=== PATIENT | female | born 1990 | race Asian ===

== ENCOUNTER → 2016-11-11 | Emergency (ER) | payer OTHER ==
[2016-11-11 15:59] VITALS: BP 123/95; PULSE 57; TEMP 98.3; BMI 31.1
--- NOTE | 2016-11-13 11:43 | EKG ---
Test Reason : Blood Pressure : / mmHG Vent. Rate : 063 BPM Atrial Rate : 063 BPM P-R Int : 204 ms QRS Dur : 162 ms QT Int : 428 ms P-R-T Axes : 043 -47 -25 degrees QTc Int : 437 ms NORMAL SINUS RHYTHM RIGHT BUNDLE BRANCH BLOCK LEFT ANTERIOR FASCICULAR BLOCK BIFASCICULAR BLOCK MINIMAL VOLTAGE CRITERIA FOR LVH, MAY BE NORMAL VARIANT T WAVE ABNORMALITY, CONSIDER LATERAL ISCHEMIA ABNORMAL ECG WHEN COMPARED WITH ECG OF 27-APR-1999 18:32, PREVIOUS ECG IS PRESENT Confirmed by MONTEZ ROSSI MD ([id number]) on 11/13/2016 11:42:39 AM Referred By: Confirmed By:MONTEZ ROSSI MD
== END | disposition left against medical advice (07) ==
LOC: JER 15:34
DX: Z53.21 Procedure and treatment not carried out due to patient leaving prior to being seen by health care provider (principal)
CPT/HCPCS: 93005; 93010; 99281-25